=== PATIENT | male | born 1955 | race Caucasian/White ===

== ENCOUNTER 2019-08-16 23:23 | Emergency (ER) | payer SELFPAY ==
[2019-08-16] MEDS ORDERED: Clindamycin 150 MG CAP ONE (23:43)
[2019-08-16] MEDS ORDERED: HYDROcodone/Acetaminophen 10/325 mg Tablet ONE (23:43)
== END 2019-08-16 23:51 | disposition home or self-care (01) ==
LOC: MADERS 23:23
DX: K13.0 Diseases of lips (principal); K02.9 Dental caries, unspecified; E11.9 Type 2 diabetes mellitus without complications; E78.5 Hyperlipidemia, unspecified; E78.00 Pure hypercholesterolemia, unspecified; I10 Essential (primary) hypertension; Z79.82 Long term (current) use of aspirin; Z79.899 Other long term (current) drug therapy; Z79.4 Long term (current) use of insulin
CPT/HCPCS: 99282

== ENCOUNTER 2025-04-12 14:17 | Emergency (ER) | payer MEDICARE ==
[2025-04-12] MEDS ORDERED: cefTRIAXone (ROCEPHIN) 2 GM VIAL ONE (14:34)
[2025-04-12 14:58] LABS: #Basophils 0.1 thou/uL (0.0-0.2); #Eosinophils 0.0 thou/uL (0.0-0.7); #Lymphocytes 1.1 thou/uL (1.20-3.40); #Monocytes 0.7 thou/uL (0.11-0.59); #Neutrophils 17.0 thou/uL (1.40-6.50); %Basophils 0.7 % (0.0-1.0); %Eosinophils 0.1 % (0.0-10.0); %Lymphocytes 5.9 % (21.0-51.0); %Monocytes 3.8 % (0.0-10.0); %Neutrophils 89.6 % (42.0-75.0); Hematocrit 51.2 % (42.0-52.0); Hemoglobin 16.2 g/dL (14.0-18.0); Mean Corpuscular Hemoglobin 29.4 pg (27.0-31.0); Mean Corpuscular Volume 93.0 fl (78.0-98.0); Platelet Count 253 10x3/uL (130-400); Red Blood Cell (RBC) Count 5.51 mill/uL (4.70-6.10); White Blood Cell (WBC) Count 18.9 10x3/uL (4.8-10.8)
[2025-04-12 15:05] LABS: INR-International Normal Ratio 1.3; PTT 30.0 sec (22.9-36.1); Prothrombin Time 16.6 sec (12.0-14.7)
[2025-04-12 15:13] LABS: ALT (SGPT) 23 U/L (Less than 45); AST (SGOT) 33 U/L (11-34); Albumin 3.6 g/dL (3.1-4.5); Alkaline Phosphatase 90 U/L (40-110); Anion Gap 19 mmol/L (10-20); BUN (Urea Nitrogen) 23 mg/dL (8.4-25.7); Bilirubin, Total 1.4 mg/dL (0.3-1.2); Calc. Creatinine Clearance 0 mL/min (70-130); Calcium 9.9 mg/dL (7.8-10.44); Carbon Dioxide 18 mmol/L (23-31); Chloride 106 mmol/L (98-107); Globulin 4.5 g/dL (2.4-3.5); Glucose 126 mg/dL (80-115); Magnesium 1.8 mg/dL (1.6-2.6); Potassium 3.8 mmol/L (3.5-5.1); Sodium 139 mmol/L (136-145)
[2025-04-12 15:14] LABS: Troponin I Less than 0.010 ng/mL (< 0.028)
[2025-04-12 15:15] LABS: Bicarbonate (HCO3v) 20.4 mmol/L (22.0-28.0); CO2 Tension (PvCO2) 30.0 mmHg (42.0-51.0); Calcium, Ionized 1.22 mmol/L (1.15-1.33); Chloride 110 mmol/L (98-107); Hemoglobin - Calc 17.5 g/dL (14.0-18.0); Potassium 3.7 mmol/L (3.5-5.1); Sodium 134 mmol/L (138-145); T. Carbon Dioxide 21.3 mmol/L (22.0-28.0); vO2 Saturation-calc 99.7 % (60.0-85.0)
[2025-04-12] MEDS ORDERED: Azithromycin 500 MG VIAL ONE (15:17)
== END 2025-04-12 18:37 | disposition home or self-care (01) ==
LOC: MADERS 14:17
DX: A41.9 Sepsis, unspecified organism (principal); N17.9 Acute kidney failure, unspecified; J18.9 Pneumonia, unspecified organism; J96.90 Respiratory failure, unspecified, unspecified whether with hypoxia or hypercapnia; E11.9 Type 2 diabetes mellitus without complications; I10 Essential (primary) hypertension; E78.5 Hyperlipidemia, unspecified
CPT/HCPCS: 71046; 80053; 82010; 82330; 82435; 82803; 83605; 83735; 84100; 84132; 84295; 84484; 85014; 85025; 85610; 85730; 87040; 87428; 93005; 94760; J0456; J0696; J2919; J7030; 36415; 96361; 96365; 96367; 96375